=== PATIENT | male | born 1935 | race Caucasian/White ===

== ENCOUNTER 2017-12-28 12:46 | Outpatient (CLI) | payer MEDICARE ==
[~2017-12-28 12:46] MED LIST: ATOR40TA PO; FOLI1TAB16 PO; LEVO750T46 PO; THI100T PO
== END 2017-12-28 23:59 | disposition home or self-care (01) ==
LOC: VAS 12:46
PROVIDERS: ATTEND Nurse Practitioner Family
DX: I08.3 Combined rheumatic disorders of mitral, aortic and tricuspid valves (principal); I65.23 Occlusion and stenosis of bilateral carotid arteries; E78.5 Hyperlipidemia, unspecified; E78.00 Pure hypercholesterolemia, unspecified; Z87.891 Personal history of nicotine dependence; Z88.0 Allergy status to penicillin
CPT/HCPCS: 93306; 93880

== ENCOUNTER 2017-12-29 10:34 | Outpatient (CLI) | payer MEDICARE | END 2017-12-29 23:59 | disposition home or self-care (01) | LOC: RAD 10:34 | PROVIDERS: ATTEND Nurse Practitioner Family | DX: R90.82 White matter disease, unspecified (principal); G45.9 Transient cerebral ischemic attack, unspecified; Z87.891 Personal history of nicotine dependence | CPT/HCPCS: 70551 ==

== ENCOUNTER 2018-08-11 14:00 | Inpatient (IN) | payer MEDICARE ==
[~2018-08-11] VITALS: Ht 170.2 cm; Wt 61.0 kg
[2018-08-11 14:19] LABS: BASOPHILS % (AUTO) 0.2 % (0-1); EOSINOPHILS % (AUTO) 0.3 % (0-6); HEMATOCRIT 50.3 % (42.0-52.0); HEMOGLOBIN 16.3 g/dl (14.0-17.9); LYMPHOCYTES # (AUTO) 0.9 X10'3 (1.1-4.8); MEAN CORPUSCULAR HEMOGLOBIN 32.9 PG (27.0-31.0); MEAN CORPUSCULAR HGB CONC 32.4 g/dL (33.0-36.5); MEAN CORPUSCULAR VOLUME 101.4 FL (78-98); MEAN PLATELET VOLUME 7.2 FL (7.4-10.4); MONOCYTES # (AUTO) 0.5 X10'3 (0-0.9); NEUTROPHILS # (AUTO) 5.4 X10'3 (1.8-7.7); NEUTROPHILS % (AUTO) 79.5 % (42-75); PLATELET COUNT 253 X10'3 (140-440); RED BLOOD COUNT 4.97 X10'6 (4.70-6.10); RED CELL DISTRIBUTION WIDTH 12.6 % (11.5-14.5); WHITE BLOOD COUNT 6.8 X10'3 (4.5-11.0)
[2018-08-11 14:37] LABS: PARTIAL THROMBOPLASTIN TIME 25 SECONDS (22-32); PROTHROMBIN TIME 10.5 SECONDS (9.0-12.0)
[2018-08-11 14:38] LABS: ALANINE AMINOTRANSFERASE 30 U/L (12-78); ALBUMIN/GLOBULIN RATIO 1.2 (1.1-1.5); ALKALINE PHOSPHATASE 70 IU/L (46-116); ANION GAP 10 (8-16); ASPARTATE AMINO TRANSFERASE 23 U/L (10-37); BILIRUBIN,TOTAL 1.2 MG/DL (0.1-1.0); BLOOD UREA NITROGEN 19 MG/DL (7-18); BUN/CREATININE RATIO 20.4 (5.4-32.0); CALCIUM 9.4 MG/DL (8.5-10.1); CHLORIDE 102 MMOL/L (99-107); CREATININE 0.93 MG/DL (0.60-1.10); GLUCOSE 108 MG/DL (70-104); POTASSIUM 3.6 MMOL/L (3.5-5.1); SODIUM 138 MMOL/L (135-145); TOTAL PROTEIN 7.4 G/DL (6.4-8.2); eGFR 77 ML/MIN
[2018-08-11 14:42] LABS: TROPONIN I < 0.04 NG/ML (0.0-0.05)
--- NOTE | 2018-08-11 15:38 | NUR ---
RESPONDED TO STROKE ALERT, THAT WAS UPGRADED TO LEVEL ONE. PT HAS CONSENTED TO TELEMEDICINE CONSULT. DR. COCHRAN COMPLETES NIHSS 1 UNABLE TO STATE CORRECT MONTH. RECOMMENDATIONS TO ADMIT FOR STROKE /TIA WORKUP AND EEG.
[2018-08-11] MEDS ORDERED: magnesium hydroxide 30ml (MOM) UD suspension PO PRN (16:05)
[2018-08-11] MEDS ORDERED: magnesium 2GM in 50ml NS 50 ML IV PRN (16:05)
[2018-08-11] MEDS ORDERED: ondansetron/PF 4mg/2ml inj IV PRN (16:05)
[2018-08-11] MEDS ORDERED: mag hydrox/Alum hydrox/simeth 30ml oral suspension PO PRN (16:05)
[2018-08-11] MEDS ORDERED: potassium Cl 40MEQ/NS 500ml 500 ML IV PRN ×2 (16:05)
[2018-08-11] MEDS ORDERED: magnesium 4gm in 100ml NS 100 ML IV PRN (16:05)
[2018-08-11] MEDS ORDERED: potassium Cl 20 mEq SR tablet PO PRN ×2 (16:05)
[2018-08-11] MEDS ORDERED: acetaminophen 325mg tablet PO PRN ×2 (16:05)
[2018-08-11] MEDS ORDERED: magnesium Cl slow-release 64mg tablet PO PRN (16:05)
[2018-08-11] MEDS ORDERED: OMEP40CA37 PO (16:52)
--- NOTE | 2018-08-11 17:10 | NUR ---
Patient in room ED 1. I have received report from Caroline GALAN in the ER and had the opportunity to ask questions and assume patient care.
[2018-08-11 17:30] VITALS: BP 145/83
[2018-08-11 18:00] VITALS: BP 145/83
--- NOTE | 2018-08-11 18:12 | NUR ---
Problems reprioritized. Patient report given, questions answered & plan of care reviewed with Priscila GALAN.
--- NOTE | 2018-08-11 18:26 | NUR ---
Patient in room ORTHO 4010. I have received report from Romulo GALAN and had the opportunity to ask questions and assume patient care.
[2018-08-11] MEDS ORDERED: CLOP75TA35 PO (19:03)
[2018-08-11] MEDS ORDERED: LATA2.5D2 EACHEYE (19:07)
[2018-08-11] MEDS ORDERED: aspirin 81mg tablet.DR PO ONE (19:25)
[2018-08-11] MEDS ORDERED: LORazepam 2 mg/ml vial IV PRN (19:30)
[2018-08-11] MEDS ORDERED: LORazepam 1 MG tablet PO PRN (19:30)
[2018-08-11] MEDS ORDERED: latanoprost 0.005% 2.5ml ophthalmic drops EACHEYE SCH (21:00)
[2018-08-11 22:00] VITALS: BP 118/70
[2018-08-12 02:00] VITALS: BP 130/78
--- NOTE | 2018-08-12 04:18 | NUR ---
surg tech called that patient had a brief run of A-fib then converted back to sinus rhythm. notified.
[2018-08-12 05:32] VITALS: BP 152/84
--- NOTE | 2018-08-12 06:43 | NUR ---
Problems reprioritized. Patient report given, questions answered & plan of care reviewed with Esperanza GALAN.
[2018-08-12 07:27] LABS: BASOPHILS % (AUTO) 0.3 % (0-1); EOSINOPHILS # (AUTO) 0.1 X10'3 (0-0.9); EOSINOPHILS % (AUTO) 0.9 % (0-6); HEMATOCRIT 50.4 % (42.0-52.0); HEMOGLOBIN 16.5 g/dl (14.0-17.9); LYMPHOCYTES # (AUTO) 1.2 X10'3 (1.1-4.8); MEAN CORPUSCULAR HEMOGLOBIN 33.6 PG (27.0-31.0); MEAN CORPUSCULAR HGB CONC 32.8 g/dL (33.0-36.5); MEAN CORPUSCULAR VOLUME 102.6 FL (78-98); MEAN PLATELET VOLUME 7.7 FL (7.4-10.4); MONOCYTES # (AUTO) 0.5 X10'3 (0-0.9); MONOCYTES % (AUTO) 7.7 % (2-12); NEUTROPHILS # (AUTO) 4.2 X10'3 (1.8-7.7); NEUTROPHILS % (AUTO) 71.1 % (42-75); PLATELET COUNT 247 X10'3 (140-440); RED BLOOD COUNT 4.91 X10'6 (4.70-6.10); RED CELL DISTRIBUTION WIDTH 12.7 % (11.5-14.5)
[2018-08-12] MEDS ORDERED: pantoprazole 40mg Tablet.DR PO SCH (07:30)
[2018-08-12 07:46] LABS: ALBUMIN 3.7 G/DL (3.4-5.0); ANION GAP 11 (8-16); BLOOD UREA NITROGEN 19 MG/DL (7-18); BUN/CREATININE RATIO 22.1 (5.4-32.0); CALCIUM 9.2 MG/DL (8.5-10.1); CHLORIDE 104 MMOL/L (99-107); CHOL/HDL RATIO 2.2 (0.00-4.99); CHOLESTEROL 199 MG/DL (0-200); CREATININE 0.86 MG/DL (0.60-1.10); GLUCOSE 99 MG/DL (70-104); HDL CHOLESTEROL 92 MG/DL (35-60); LDL CHOLESTEROL 94 MG/DL (50-100); POTASSIUM 3.8 MMOL/L (3.5-5.1); SODIUM 142 MMOL/L (135-145); TRIGLYCERIDES 97 MG/DL (20-135); eGFR 85 ML/MIN
[2018-08-12] MEDS ORDERED: folic acid 1mg tablet PO SCH (08:00)
[2018-08-12] MEDS ORDERED: K and/or MAG REPLACEMENT MC SCH (08:00)
[2018-08-12] MEDS ORDERED: enoxaparin 40mg/0.4ml syringe SQ SCH (08:00)
[2018-08-12] MEDS ORDERED: atorvastatin 20mg tablet PO SCH (08:00)
[2018-08-12] MEDS ORDERED: aspirin 81mg tablet.DR PO SCH (08:00)
[2018-08-12] MEDS ORDERED: thiamine 100mg tablet PO SCH (08:00)
[2018-08-12 10:00] VITALS: BP 134/77
[2018-08-12 12:20] VITALS: BP 121/89
[2018-08-12 15:06] VITALS: BP 115/69
== END 2018-08-12 16:26 | disposition home or self-care (01) | DRG 69 ==
LOC: ER 14:00 → ED HOLD 16:02 → ORTHO 4S 17:30
PROVIDERS: ADMIT Hospitalist; ATTEND Internal Medicine
PROC: 4A00X4Z Measurement of Central Nervous Electrical Activity, External Approach (ICD-10-PCS; principal; 2018-08-12)
DX: G45.9 Transient cerebral ischemic attack, unspecified (principal); K21.9 Gastro-esophageal reflux disease without esophagitis; E78.5 Hyperlipidemia, unspecified; I48.0 Paroxysmal atrial fibrillation; E78.00 Pure hypercholesterolemia, unspecified; F17.210 Nicotine dependence, cigarettes, uncomplicated; Z88.0 Allergy status to penicillin; Z79.899 Other long term (current) drug therapy; Z86.73 Personal history of transient ischemic attack (TIA), and cerebral infarction without residual deficits
CPT/HCPCS: 36415; 70450; 71045; 80048; 80053; 80061; 82378; 83735; 84484; 85025; 85610; 85730; 87070; 93005; 93308; 93880; 95816; 97162; 97530; 99285; G0378; J1650

== ENCOUNTER 2018-12-11 11:54 | Emergency (ER) | payer MEDICARE ==
[~2018-12-11] VITALS: Ht 170.2 cm; Wt 61.2 kg
[~2018-12-11 11:54] MED LIST changes: -FOLI1TAB16 PO; +LATA2.5D2 EACHEYE; -LEVO750T46 PO; +OMEP40CA37 PO; -THI100T PO
[2018-12-11] MEDS ORDERED: normal saline 1000ML IV soln IVB ONE (12:05)
[2018-12-11 12:43] LABS: BASOPHILS % (AUTO) 0.3 % (0-1); EOSINOPHILS % (AUTO) 0.4 % (0-6); HEMATOCRIT 42.8 % (42.0-52.0); HEMOGLOBIN 14.6 g/dl (14.0-17.9); LYMPHOCYTES # (AUTO) 0.9 X10'3 (1.1-4.8); LYMPHOCYTES % (AUTO) 11.4 % (21-51); MEAN CORPUSCULAR HEMOGLOBIN 34.3 PG (27.0-31.0); MEAN CORPUSCULAR HGB CONC 34.2 g/dL (33.0-36.5); MEAN CORPUSCULAR VOLUME 100.3 FL (78-98); MEAN PLATELET VOLUME 6.7 FL (7.4-10.4); MONOCYTES # (AUTO) 0.5 X10'3 (0-0.9); MONOCYTES % (AUTO) 6.9 % (2-12); NEUTROPHILS # (AUTO) 6.4 X10'3 (1.8-7.7); PLATELET COUNT 247 X10'3 (140-440); RED BLOOD COUNT 4.27 X10'6 (4.70-6.10); RED CELL DISTRIBUTION WIDTH 13.5 % (11.5-14.5); WHITE BLOOD COUNT 7.9 X10'3 (4.5-11.0)
[2018-12-11] MEDS ORDERED: LIDOcaine 1.5% w/epinephrine 1:200,000 5ml ampul IJ ONE (12:50)
[2018-12-11 12:55] LABS: ALANINE AMINOTRANSFERASE 31 U/L (12-78); ALBUMIN 3.4 G/DL (3.4-5.0); ALBUMIN/GLOBULIN RATIO 1.1 (1.1-1.5); ALKALINE PHOSPHATASE 65 IU/L (46-116); ANION GAP 5 (8-16); ASPARTATE AMINO TRANSFERASE 27 U/L (10-37); BILIRUBIN,TOTAL 0.9 MG/DL (0.1-1.0); BLOOD UREA NITROGEN 19 MG/DL (7-18); BUN/CREATININE RATIO 21.1 (5.4-32.0); CALCIUM 8.8 MG/DL (8.5-10.1); CHLORIDE 109 MMOL/L (99-107); GLUCOSE 115 MG/DL (70-104); POTASSIUM 3.8 MMOL/L (3.5-5.1); SODIUM 142 MMOL/L (135-145); TOTAL CARBON DIOXIDE 28.4 MMOL/L (24-32); TOTAL PROTEIN 6.6 G/DL (6.4-8.2); eGFR 80 ML/MIN
[2018-12-11] MEDS ORDERED: LIDOcaine 1% w/epiNEPHrine 1:200,000 30ml vial IJ ONE (12:55)
[2018-12-11 14:09] LABS: CLARITY,URINE CLEAR (Clear); COLOR,URINE YELLOW (Yellow); GLUCOSE, URINE NEGATIVE (Neg); KETONES,URINE NEGATIVE (Neg); LEUKOCYTE ESTERASE ,URINE NEGATIVE (Neg); NITRITES, URINE NEGATIVE (Neg); OCCULT BLOOD,URINE NEGATIVE (Neg); PH,URINE 6.5 (4.8-8.0); PROTEIN,URINE NEGATIVE (Neg); UROBILINOGEN,URINE 0.2 E.U/dL (0.2-1.0)
[2018-12-11] MEDS ORDERED: bacitracin 15gm ointment TP ONE (14:15)
[2018-12-11 14:16] LABS: UA COLLECTION TYPE URINAL
--- NOTE | 2018-12-11 14:38 | NUR ---
called sylvia hilliard but was only able to leave a message for him to call us back.
[2018-12-11 15:21] VITALS: BP 160/84
== END 2018-12-11 15:33 | disposition home or self-care (01) ==
LOC: ER 11:55
DX: S51.811A Laceration without foreign body of right forearm, initial encounter (principal); S00.12XA Contusion of left eyelid and periocular area, initial encounter; E78.00 Pure hypercholesterolemia, unspecified; Z88.0 Allergy status to penicillin; Z79.899 Other long term (current) drug therapy; Z60.2 Problems related to living alone; Z86.73 Personal history of transient ischemic attack (TIA), and cerebral infarction without residual deficits; Z98.890 Other specified postprocedural states; W01.198A Fall on same level from slipping, tripping and stumbling with subsequent striking against other object, initial encounter; Y93.89 Activity, other specified; Y92.094 Garage of other non-institutional residence as the place of occurrence of the external cause; Y99.8 Other external cause status
CPT/HCPCS: 36415; 70450; 70486; 71045; 80053; 81003; 82948; 85025; 85610; 93005; 99284; J3490; J7030

== ENCOUNTER 2019-05-11 11:57 | Emergency (ER) | payer MEDICARE ==
[~2019-05-11] VITALS: Ht 170.2 cm; Wt 62.0 kg
[~2019-05-11 11:57] MED LIST changes: +OMEP40CA13 PO; -OMEP40CA37 PO
--- NOTE | 2019-05-11 12:15 | NUR ---
Dr. Gamble at bedside.
[2019-05-11] MEDS ORDERED: LIDOcaine/epinephrine TOPICAL 5 ML BTL TOP ONE (12:35)
[2019-05-11] MEDS ORDERED: TETanus/Pertussis (Acell)/Diphther VAC/PF (Tdap-Adult) 0.5ml syringe IMVAC ONE (12:35)
--- NOTE | 2019-05-11 13:17 | NUR ---
ct scan negative for bleed, off trauma status per dr boston.
--- NOTE | 2019-05-11 14:06 | NUR ---
Pt ambulated approx 150ft around nurses station, oxygenated >95%, HR <91, tolerated ambulation well and was coordinated
--- NOTE | 2019-05-11 14:14 | NUR ---
patient cleared to be dc'd home,caregiver on her way to pickle sorter patient.
[2019-05-11 14:18] VITALS: BP 144/72
== END 2019-05-11 14:15 | disposition home or self-care (01) ==
LOC: ER 11:58
DX: S41.111A Laceration without foreign body of right upper arm, initial encounter (principal); S80.02XA Contusion of left knee, initial encounter; S80.211A Abrasion, right knee, initial encounter; E78.00 Pure hypercholesterolemia, unspecified; K21.9 Gastro-esophageal reflux disease without esophagitis; F03.90 Unspecified dementia, unspecified severity, without behavioral disturbance, psychotic disturbance, mood disturbance, and anxiety; Z86.73 Personal history of transient ischemic attack (TIA), and cerebral infarction without residual deficits; Z88.0 Allergy status to penicillin; Z79.899 Other long term (current) drug therapy; W18.30XA Fall on same level, unspecified, initial encounter; Y93.89 Activity, other specified; Y92.89 Other specified places as the place of occurrence of the external cause; Y99.9 Unspecified external cause status
CPT/HCPCS: 70450; 90471; 99284

== ENCOUNTER 2019-06-24 13:26 | Emergency (ER) | payer MEDICARE ==
[~2019-06-24] VITALS: Ht 165.1 cm; Wt 58.2 kg
[2019-06-24 13:45] VITALS: BP 112/61
[2019-06-24] MEDS ORDERED: predniSONE 20 mg tablet PO ONE (13:50)
[2019-06-24 14:44] LABS: BASOPHILS % (AUTO) 0.3 % (0-1); EOSINOPHILS # (AUTO) 0.1 X10'3 (0-0.9); EOSINOPHILS % (AUTO) 0.8 % (0-6); HEMATOCRIT 43.4 % (42.0-52.0); LYMPHOCYTES # (AUTO) 1.1 X10'3 (1.1-4.8); LYMPHOCYTES % (AUTO) 17.1 % (21-51); MEAN CORPUSCULAR HEMOGLOBIN 34.5 PG (27.0-31.0); MEAN CORPUSCULAR HGB CONC 34.5 g/dL (33.0-36.5); MEAN CORPUSCULAR VOLUME 100.1 FL (78-98); MEAN PLATELET VOLUME 7.1 FL (7.4-10.4); MONOCYTES # (AUTO) 0.7 X10'3 (0-0.9); MONOCYTES % (AUTO) 11.1 % (2-12); NEUTROPHILS # (AUTO) 4.5 X10'3 (1.8-7.7); NEUTROPHILS % (AUTO) 70.7 % (42-75); PLATELET COUNT 240 X10'3 (140-440); RED BLOOD COUNT 4.33 X10'6 (4.70-6.10); RED CELL DISTRIBUTION WIDTH 13.1 % (11.5-14.5); WHITE BLOOD COUNT 6.3 X10'3 (4.5-11.0)
[2019-06-24 14:57] LABS: ALANINE AMINOTRANSFERASE 29 U/L (12-78); ALBUMIN 3.5 G/DL (3.4-5.0); ALKALINE PHOSPHATASE 82 IU/L (46-116); ANION GAP 7 (8-16); ASPARTATE AMINO TRANSFERASE 26 U/L (10-37); BILIRUBIN,TOTAL 0.9 MG/DL (0.1-1.0); BLOOD UREA NITROGEN 16 MG/DL (7-18); BUN/CREATININE RATIO 20.5 (5.4-32.0); CALCIUM 9.1 MG/DL (8.5-10.1); CHLORIDE 107 MMOL/L (99-107); CREATININE 0.78 MG/DL (0.60-1.10); GLUCOSE 123 MG/DL (70-104); POTASSIUM 4.1 MMOL/L (3.5-5.1); SODIUM 141 MMOL/L (135-145); TOTAL CARBON DIOXIDE 27.5 MMOL/L (24-32); TOTAL PROTEIN 7.1 G/DL (6.4-8.2); eGFR > 90 ML/MIN
[2019-06-24] MEDS ORDERED: METH4TAB3 PO (15:07)
== END 2019-06-24 15:20 | disposition home or self-care (01) ==
LOC: ER 13:26
DX: J04.0 Acute laryngitis (principal); E78.00 Pure hypercholesterolemia, unspecified; K21.9 Gastro-esophageal reflux disease without esophagitis; Z86.73 Personal history of transient ischemic attack (TIA), and cerebral infarction without residual deficits; Z98.890 Other specified postprocedural states; Z60.2 Problems related to living alone; Z88.0 Allergy status to penicillin; Z79.899 Other long term (current) drug therapy
CPT/HCPCS: 36415; 71046; 80053; 85025; 99284; J7512